=== PATIENT | female | born 1990 | race African-American/Black ===

== ENCOUNTER 2017-11-20 13:23 | Emergency (ER) | payer BC ==
[~2017-11-20] VITALS: Ht 154.9 cm; Wt 68.0 kg
--- NOTE | 2017-11-20 13:56 | Emergency Room Report ---
History of Present Illness General Chief Complaint: General Complaint Source: Patient Present Illness HPI 27-year-old female presents to the emergency department complaining of prolonged menstruation lasting 15 days. Patient denies weakness, dizziness, chills, syncope, lethargy. Patient denies history of irregular bleeding in the past. Patient states she was seen by her PRODUCT MGR yesterday who did some laboratory work and gave her referral for ultrasound. Patient states that she has not received the results of her laboratory work. Patient reports intermittent episodes of uterine cramping that is 7 out of 10 in severity that radiates to the low back. Patient states that she does normally have moderate symptoms during her periods. Patient estimates using one regular absorbency pad every 4 hours and states that she has not completely saturating them before changing. Pt. reports urgency, denies frequency, hematuria or dysuria. Patient denies unilateral adnexal pain, vaginal lesions, history of STDs. Patient denies however she states she is sexually active and is not taking control. She denies nausea, vomiting, abdominal tenderness. Denies CP, Palpitations, LOC, AMS, dizziness, Changes in Vision, Sensation, paresthesias, or a sudden severe headache. Allergies: Coded Allergies: No Known Allergies (Unverified , 11/20/17) Patient History Past Medical History: see triage record Past Surgical History: none Pertinent Family History: none Last Menstrual Period: on period Now: No Reviewed Nursing Documentation: PMH: Agreed; PSxH: Agreed Nursing Documentation-PMH Past Medical History: No Stated History Review of Systems All Other Systems: negative except mentioned in HPI Physical Exam Vital Signs Date Time Temp Pulse Resp B/P (MAP) Pulse Ox O2 Delivery O2 Flow Rate FiO2 11/20/17 13:33 98.1 95 16 120/77 100 Room Air 98.1 Sp02 EP Interpretation: reviewed, normal General Appearance: no apparent distress, alert, GCS 15, non-toxic Head: normocephalic, atraumatic ENT: hearing grossly normal, normal voice Neck: full range of motion Respiratory: lungs clear, normal breath sounds, speaking full sentences Cardiovascular #1: regular rate, rhythm, normal capillary refill Gastrointestinal: normal bowel sounds, non tender, soft, non-distended, no guarding Genitourinary: normal inspection, no CVA tenderness, deferred - pelvic deferred Musculoskeletal: back normal, gait/station normal, normal range of motion, non- tender Neurologic: alert, oriented x3, responsive, motor strength/tone normal, sensory intact, normal gait, speech normal, grossly normal Psychiatric: judgement/insight normal Skin: normal color, no rash, warm/dry, well hydrated Lymphatic: no adenopathy Medical Decision Making PA Attestation Dr. Bal is my supervising Physician whom patient management has been discussed with. Diagnostic Impression: Primary Impression: Menorrhagia Qualified Codes: N92.0 - Excessive and frequent menstruation with regular cycle Additional Impression: Urinary tract infection Qualified Codes: N30.01 - Acute cystitis with hematuria ER Course 27-year-old female presents to the emergency department complaining of prolonged menstruation lasting 15 days. Patient denies weakness, dizziness, chills, syncope, lethargy. Patient denies history of irregular bleeding in the past. Patient states she was seen by her PRODUCT MGR yesterday who did some laboratory work and gave her referral for ultrasound. Patient states that she has not received the results of her laboratory work. Patient reports intermittent episodes of uterine cramping that is 7 out of 10 in severity that radiates to the low back. Patient states that she does normally have moderate symptoms during her periods. Patient estimates using one regular absorbency pad every 4 hours and states that she has not completely saturating them before changing. Pt. reports urgency, denies frequency, hematuria or dysuria. Patient denies unilateral adnexal pain, vaginal lesions, history of STDs. Patient denies however she states she is sexually active and is not taking control. She denies nausea, vomiting, abdominal tenderness. Denies CP, Palpitations, LOC, AMS, dizziness, Changes in Vision, Sensation, paresthesias, or a sudden severe headache. Ddx considered but are not limited to: Fibroid, ectopic , Fibroid, Spontaneous , DUB, metrorrhagia, menorrhagia, irregular cycles, anemia Vital signs: are WNL, pt. is afebrile H&PE are most consistent with: menorrhagia. - anemia is not suspected at this time given pt. benign PE. ORDERS: -Urine hcg- Negative -UA: significantly elevated leukocyte esterase and WBC's in addition to some bacteria. ED INTERVENTIONS: -IM Toradol -I discussed with this patient that first-line therapy for this is anti- inflammatory medications which are known to reduce vaginal bleeding in addition to oral control. Patient states that her PRODUCT MGR offered oral control however she declined because she is worried that when she stops she will have an excess of hormones thus creating problems. -Discussed with patient that her clinical presentation does not indicate emergency ultrasound at this time and encouraged patient to make an appointment with the referral that her PRODUCT MGR gave her for ultrasound. -I do not identify an emergent condition at this time. With current presentation , pt. is stable for close outpatient follow up and conservative treatment. D/ w pt. to return promptly to ED with worsening or new symptoms.- Pt. (and or responsible constitution party) verbalizes' understanding and agreement with proposed treatment plan.proposed treatment plan. Pt. given ED return precautions for worsening of her current symptoms or new symptoms. DISCHARGE: At this time pt. is stable for d/c to home. Will provide printed patient care instructions, and any necessary prescriptions. Care plan and follow up instructions have been discussed with the patient prior to discharge. Labs Test 11/20/17 13:50 Urine Color Pale yellow Urine Appearance Slightly cloudy Urine pH 8 (4.5-8.0) Urine Specific [place] 1.015 (1.005-1.035) Urine Protein 2+ (NEGATIVE) Urine Glucose (UA) Negative (NEGATIVE) Urine Ketones Negative (NEGATIVE) Urine Occult Blood 5+ (NEGATIVE) Urine Nitrite Negative (NEGATIVE) Urine Bilirubin Negative (NEGATIVE) Urine Urobilinogen Normal MG/DL (0.0-1.0) Urine Leukocyte Esterase 3+ (NEGATIVE) Urine RBC 10-15 /HPF (0 - 2) Urine WBC 5-10 /HPF (0 - 2) Urine Squamous Epithelial Cells Moderate /LPF (NONE/OCC) Urine Amorphous Sediment Few /LPF (NONE) Urine Bacteria Few /HPF (NONE) Urine HCG, Qualitative Negative (NEGATIVE) Last Vital Signs Date Time Temp Pulse Resp B/P (MAP) Pulse Ox O2 Delivery O2 Flow Rate FiO2 11/20/17 13:33 98.1 95 16 120/77 100 Room Air 98.1 Disposition: HOME, SELF-CARE Condition: Stable Scripts Ibuprofen* (MOTRIN*) 600 Mg Tablet 600 MG ORAL THREE TIMES A DAY, #30 TAB 0 Refills Prov: Jennifer Pereira P.A. 11/20/17 Nitrofurantoin Monohyd/M-Cryst* (MACROBID 100 MG*) 100 Mg Capsule 100 MG ORAL EVERY 12 HOURS for 5 Days, #10 CAP Prov: Jennifer Pereira 11/20/17 Patient Instructions: Abnormal Uterine Bleeding, Urinary Tract Infection, Easy- to-Read Additional Instructions: Take medications as directed. Follow up with a OBGYN within 3 days, even if your symptoms have resolved. Return sooner to ED if new symptoms occur, or current symptoms become worse. - Please note that this Emergency Department Report was dictated using [employer] inspector technology software, occasionally this can lead to erroneous entry secondary to interpretation by the dictation equipment. Jennifer Pereira Nov 20, 2017 13:56
[2017-11-20] MEDS ORDERED: Ketorolac 60mg Inj IM ONE (14:00)
[2017-11-20 14:03] LABS: APPEARANCE,URINE SLIGHTLY CLOUDY; BILIRUBIN, URINE NEGATIVE (NEGATIVE); COLOR,URINE PALE YELLOW; GLUCOSE, URINE (UA) NEGATIVE (NEGATIVE); KETONES,URINE NEGATIVE (NEGATIVE); LEUKOCYTE ESTERASE ,URINE 3+ (NEGATIVE); NITRITE,URINE NEGATIVE (NEGATIVE); PH,URINE 8 (4.5-8.0); PROTEIN,URINE 2+ (NEGATIVE); UROBILINOGEN,URINE NORMAL MG/DL (0.0-1.0)
[2017-11-20] MEDS ORDERED: NITROFURANTOIN100 M2 ORAL (14:28)
[2017-11-20] MEDS ORDERED: IBUPROFEN600 MG ORAL (14:28)
[2017-11-20 14:38] VITALS: BP 104/54
== END 2017-11-20 14:38 | disposition home or self-care (01) ==
LOC: EMR 14:30
DX: N92.0 Excessive and frequent menstruation with regular cycle (principal); N39.0 Urinary tract infection, site not specified
CPT/HCPCS: 81003; 81025; 96372; 99284